=== PATIENT | male | born 1990 | race Caucasian/White ===

== ENCOUNTER 2020-03-05 09:49 | Emergency (ER) | payer OTHER ==
[~2020-03-05] VITALS: Ht 190.5 cm; Wt 127.3 kg
[2020-03-05 10:00] VITALS: BP 123/88
[2020-03-05] MEDS ORDERED: BACTRIM DS TAB1 EACH PO (11:46)
== END 2020-03-05 12:00 | disposition home or self-care (01) ==
LOC: ED 09:49
DX: T63.301A Toxic effect of unspecified spider venom, accidental (unintentional), initial encounter (principal); S51.051A Open bite, right elbow, initial encounter; B96.89 Other specified bacterial agents as the cause of diseases classified elsewhere; F17.200 Nicotine dependence, unspecified, uncomplicated